=== PATIENT | male | born 1980 | race African-American/Black ===

== ENCOUNTER 2020-01-12 21:14 | Emergency (ER) | payer SELFPAY ==
[~2020-01-12] VITALS: Ht 172.7 cm; Wt 86.4 kg
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
[2020-01-12] MEDS ORDERED: LIDOCAINE 2%/EPI 1:100,000 20 ML VIAL. IJ ONE (22:30)
[2020-01-12] MEDS ORDERED: CIPROFLOXACIN HCL 250 MG TABLET. PO ONE (23:00)
[2020-01-12] MEDS ORDERED: CEPHALEXIN 250 MG CAPSULE. PO ONE (23:00)
[2020-01-12] MEDS ORDERED: CIPR500T PO (23:40)
[2020-01-12] MEDS ORDERED: HYDR-3164 PO (23:40)
[2020-01-12] MEDS ORDERED: CEPH-264 PO (23:40)
[2020-01-13] VITALS: BP 149/89
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
== END 2020-01-13 00:13 | disposition home or self-care (01) ==
LOC: ER 21:14
DX: S61.432A Puncture wound without foreign body of left hand, initial encounter (principal); M79.642 Pain in left hand; W34.00XA Accidental discharge from unspecified firearms or gun, initial encounter; Y93.89 Activity, other specified; Y92.89 Other specified places as the place of occurrence of the external cause; Y99.8 Other external cause status
CPT/HCPCS: 73130; 99285; J3490